=== PATIENT | male | born 1980 | race Two or more races ===

== ENCOUNTER 2022-04-05 11:37 | Emergency (ER) | payer OTHER ==
[2022-04-05] MEDS ORDERED: NA CHLORIDE 0.9% 1,000 ML ONE (12:10)
[2022-04-05 12:17] LABS: Urine Blood 2+ (Negative); Urine Glucose Negative (Negative); Urine Protein 1+ (Negative); Urine Specific Gravity >=1.030 (1.005-1.030); Urine pH 5.5 (5.0-7.0)
[2022-04-05 12:19] LABS: Absolute Lymphocytes (CBC) 1.8 K/uL (0.7-4.9); Lymphocytes % 27.4 % (15.3-44.8); MPV 7.3 fL (7.6-11.3); RBC Red Blood Cell Count 4.95 M/uL (4.33-5.43)
[2022-04-05 12:38] LABS: ALT/SGPT 55 U/L (12-78); AST/SGOT 29 U/L (15-37); Albumin 4.2 g/dL (3.4-5.0); Alkaline Phosphatase 64 U/L (45-117); BUN Blood Urea Nitrogen 14 mg/dL (7-18); Bicarbonate 27 mmol/L (21-32); Bilirubin Total 0.7 mg/dL (0.2-1.0); Glomerular Filtration Rate 88 ml/min (=/>90); Glucose Level 92 mg/dL (74-106); Potassium 3.3 mmol/L (3.5-5.1); Protein, Total 7.7 g/dL (6.4-8.2); Sodium Level 138 mmol/L (136-145)
--- NOTE | 2022-04-05 12:44 | RAD REPORT ---
EXAM DESCRIPTION: CTAbdomen Pelvis Wo Contrast - 04/05/2022 12:22 pm CLINICAL HISTORY: R flank pain r/o stone COMPARISON: <Comparisons> TECHNIQUE: CT of the abdomen and pelvis was performed. All CT scans are performed using dose optimization technique as appropriate and may include automated exposure control or mA/KV adjustment according to patient size. FINDINGS: Lower chest: No acute abnormality. Liver: No acute abnormality or suspicious lesions. Biliary: No biliary ductal dilatation. Stomach: No significant focal abnormality. Duodenum: No significant focal abnormality. Pancreas: No significant abnormality. Spleen: No significant abnormality. Adrenal: No suspicious lesions. Kidney/ureter: 5 mm stone at the right UPJ. No hydronephrosis. No other renal calculi identified. Retroperitoneum: No retroperitoneal adenopathy. Vascular: No aneurysm. Bowel: No significant focal abnormality. Normal appendix. Peritoneum: No ascites or free air. Bladder: Grossly unremarkable. Reproductive: No adnexal masses. Bones: No acute fracture. Other: n/a IMPRESSION: 5 mm stone at the right UPJ. No hydronephrosis however there could be intermittent obstr uction.
[2022-04-05 12:48] LABS: CKMB Creatine Kinase MB < 1.0 ng/mL (1.0-3.6)
--- NOTE | 2022-04-05 13:04 | EDPHYS ---
Physician Documentation [facility] Name: Juanito Anglin Age: 42 yrs Sex: Male : 1980 Arrival Date: 04/05/2022 Time: 11:39 Bed 20 Private MD: ED Physician Malachi Ortega HPI: 04/05 11:58 This 42 yrs old Male presents to ER via Ambulatory with complaints of Back Pain, en Urinary Problem. 11:58 42 yo M with no PMH presents to ED with intermittent right flank pain x 2 days. 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 He increased his water intake with improvement but not resolution, so job sent him in for eval. Pt denies CP, SOB, N/V/D. . Historical: - Allergies: 11:53 No Known Allergies; ph - PMHx: 11:53 None; ph - PSHx: 11:53 None; ph - Immunization history:: Client reports receiving the 2nd dose of the Covid vaccine. - Social history:: Smoking status: Patient denies any tobacco usage or history of. ROS: 11:58 Constitutional: Negative for fever, chills, and weight loss. en 11:58 Constitutional: Negative for body aches, chills, fatigue, fever, malaise. 11:58 Cardiovascular: Negative for chest pain. 11:58 Respiratory: Negative for cough, shortness of breath. 11:58 Abdomen/GI: Negative for abdominal pain, nausea, vomiting, and diarrhea. 11:58 Back: Positive for flank pain, on the right. 11:58 : Positive for dark urine and decreased UOP, Negative for dysuria and gross hematuria, no h/o kidney stones. 11:58 All other systems are negative. Exam: 11:58 Constitutional: This is a well developed, well nourished patient who is awake, alert, en and in no acute distress. 11:58 Constitutional: The patient appears in no acute distress, alert, awake. 11:58 Eyes: Conjunctiva: normal, no exudate, no injection. 11:58 ENT: Mouth: Lips: dry, Oral mucosa: pink and intact, moist, Posterior pharynx: Airway: patent. 11:58 Cardiovascular: Rate: normal, Rhythm: regular, Pulses: Heart sounds: normal, no murmur, no rub, no gallop. 11:58 Respiratory: the patient does not display signs of respiratory distress, Respirations: normal, Breath sounds: are clear throughout, no rales, rhonchi, no stridor, no wheezing. 11:58 Abdomen/GI: Inspection: abdomen appears normal, Bowel sounds: normal, in all quadrants, Palpation: abdomen is soft and non-tender, in all quadrants. 11:58 Back: ROM is normal, painless, CVA tenderness, is absent. 11:58 Skin: Exam negative for poor turgor, rash. 11:58 Neuro: Orientation: appropriate for stated age, to person, place \T\ time. 11:58 Psych: Behavior/mood is pleasant, cooperative, Affect is calm. Vital Signs: 11:54 BP 133 / 77; Pulse 65; Resp 17; Temp 98.5; Pulse Ox 100% on R/A; Weight 73 kg; Height 5 ph ft. 6 in. (170 cm); Pain 0/10; 12:15 BP 121 / 77; Pulse 51; Resp 17; Pulse Ox 100% ; bp 13:24 BP 119 / 71; Pulse 55; Resp 17; Pulse Ox 100% ; bp 11:54 Body Mass Index 25.26 (73.00 kg, 170 cm) ph MDM: 11:58 Differential diagnosis: ureterollithiais, renal colic, rhabdomyolysis, dehydration. en 11:58 Data reviewed: vital signs, nurses notes, lab test result(s), and as a result, I will en administer IV fluids, check labs. Will also get noncontrast CT to r/o ureterolithiasis. 12:23 Patient medically screened. en 12:53 ED course: Pain improved. Reviewed imaging and labs with pt. R ureteral stone. WIll d/c en home with po meds including zofran, ketorolac, and flomax with referral. 04/05 11:58 Order name: CBC with Diff; Complete Time: 12:53 en 04/05 11:58 Order name: CMP; Complete Time: 12:53 en 04/05 11:58 Order name: Ckmb; Complete Time: 12:53 en 04/05 12:05 Order name: CT Abd/Pelvis - Without Contrast; Complete Time: 12:53 en 04/05 12:18 Order name: Urine Dipstick-Ancillary; Complete Time: 12:26 EDMS 04/05 11:58 Order name: Saline Lock; Complete Time: 12:18 en 04/05 11:58 Order name: Urine Dipstick-Ancillary (obtain specimen); Complete Time: 12:18 en Administered Medications: 12:10 Drug: NS 0.9% 1000 ml Route: IV; Rate: 1 bolus; Site: right antecubital; bp 13:25 Follow up: IV Status: Completed infusion; IV Intake: 1000ml bp Disposition Summary: 04/05/22 13:02 Discharge Ordered Location: Home en Problem: new en Symptoms: have improved en Condition: Stable en Diagnosis - Calculus of ureter en Followup: en - With: Kevyn Bowie MD - When: 2 - 3 days - Reason: Discharge Instructions: - Discharge Summary Sheet en - Kidney Stones en Forms: - Medication Reconciliation Form en - Thank You Letter en - Antibiotic Education en - Prescription Opioid Use en Prescriptions: - Flomax 0.4 mg Oral capsule - take 1 capsule by ORAL route once daily 1/2 hour following the same meal each en day; 20 capsule; Refills: 0, Product Selection Permitted - ketorolac 10 mg Oral tablet - take 1 tablet by ORAL route every 6 hours not to exceed 40 mg in 24hrs; 12 en tablet; Refills: 0, Product Selection Permitted - Zofran 4 mg Oral Tablet - take 1 tablet by ORAL route every 12 hours As needed; 20 tablet; Refills: 0, en Product Selection Permitted Signatures: Dispatcher [employer] [facility] Melva Srinivasan, RN RN Iftikhar Craig RN RN Anneliese Hamm PA PA en
--- NOTE | 2022-04-05 13:04 | ER ---
Nurse's Notes [facility] Name: Juanito Anglin Age: 42 yrs Sex: Male : 1980 Arrival Date: 04/05/2022 Time: 11:39 Bed 20 Private MD: Diagnosis: Calculus of ureter Presentation: 04/05 11:54 Chief complaint: Patient states: Brown urine, decreased urine output, and R back pain ph on 03/30. 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 Dickey better since. States he did notice his urine looked very yellow today. No known fevers. Must have work release. Coronavirus screen: Vaccine status: Patient reports receiving the 2nd dose of the covid vaccine. Client denies travel out of the [place] in the last 14 days. At this time, the client does not indicate any symptoms associated with coronavirus-19. Ebola Screen: Patient denies travel to an Ebola-affected area in the 21 days before illness onset. Initial Sepsis Screen: Does the patient meet any 2 criteria? No. Patient's initial sepsis screen is negative. Does the patient have a suspected source of infection? Yes: Dysuria/Frequency/Urgency/UTI. Risk Assessment: Do you want to hurt yourself or someone else? Patient reports no desire to harm self or others. Onset of symptoms was March 30, 2022. 11:54 Method Of Arrival: Ambulatory ph 11:54 Acuity: MORTEZA 3 ph Triage Assessment: 11:57 General: Appears in no apparent distress. Behavior is calm, cooperative, appropriate ph for age. Pain: Denies pain. : Reports brown urine with decreased output 03/30. Yellow urine today. Musculoskeletal: Circulation, motion, and sensation intact. Capillary refill < 3 seconds. Historical: - Allergies: 11:53 No Known Allergies; ph - PMHx: 11:53 None; ph - PSHx: 11:53 None; ph - Immunization history:: Client reports receiving the 2nd dose of the Covid vaccine. - Social history:: Smoking status: Patient denies any tobacco usage or history of. Screenin:15 Abuse screen: Denies threats or abuse. Denies injuries from another. Nutritional bp screening: No deficits noted. Tuberculosis screening: No symptoms or risk factors identified. Fall Risk None identified. Assessment: 12:00 General: SEE TRIAGE NOTE. bp 12:15 Reassessment: PT TO CT. bp 13:24 Reassessment: PT D/C HOME AMBULATORY, DX WITH RENAL CALCULUS. bp Vital Signs: 11:54 BP 133 / 77; Pulse 65; Resp 17; Temp 98.5; Pulse Ox 100% on R/A; Weight 73 kg; Height 5 ph ft. 6 in. (170 cm); Pain 0/10; 12:15 BP 121 / 77; Pulse 51; Resp 17; Pulse Ox 100% ; bp 13:24 BP 119 / 71; Pulse 55; Resp 17; Pulse Ox 100% ; bp 11:54 Body Mass Index 25.26 (73.00 kg, 170 cm) ph ED Course: 11:39 Patient arrived in ED. mr 11:44 Iftikhar Hernandez, PHILIP is Primary Nurse. bp 11:53 Anneliese Guaman PA is PHCP. en 11:53 Malachi Ortega MD is Attending Physician. en 11:53 Arm band placed on Patient placed in an exam room, on a stretcher. ph 11:57 Triage completed. ph 12:10 Inserted saline lock: 22 gauge in right antecubital area, using aseptic technique. bp Blood collected. 12:15 Patient has correct armband on for positive identification. Bed in low position. Call bp light in reach. Side rails up X2. 12:23 CT Abd/Pelvis - Without Contrast In Process Unspecified. EDMS 13:02 Kevyn Bowie MD is Referral Physician. en 13:24 No provider procedures requiring assistance completed. IV discontinued, intact, bp bleeding controlled, No redness/swelling at site. Pressure dressing applied. Administered Medications: 12:10 Drug: NS 0.9% 1000 ml Route: IV; Rate: 1 bolus; Site: right antecubital; bp 13:25 Follow up: IV Status: Completed infusion; IV Intake: 1000ml bp Medication: 13:24 VIS not applicable for this client. bp Intake: 13:25 IV: 1000ml; Total: 1000ml. bp Outcome: 13:02 Discharge ordered by . en 13:24 Discharged to home ambulatory. bp 13:24 Condition: stable 13:24 Discharge instructions given to patient, Instructed on discharge instructions, follow up and referral plans. medication usage, Demonstrated understanding of instructions, follow-up care, medications, Prescriptions given X 3. 13:26 Patient left the ED. bp Signatures: Dispatcher [employer] EDMS SosaZuleyma Patricia, RN RN Iftikhar Craig RN RN Anneliese Hamm PA PA en
[2022-04-05 13:40] VITALS: TEMP 98.5; O2SAT 100
[2022-04-05 13:44] VITALS: BP 119/71
== END 2022-04-05 13:26 | disposition home or self-care (01) ==
LOC: ER 11:37
DX: N20.1 Calculus of ureter (principal)
CPT/HCPCS: 36415; 74176; 80053; 81003; 82553; 85025; 96360; 99284; J7030